=== PATIENT | female | born 2000 | race Hispanic/Latino ===

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

== ENCOUNTER 2021-11-12 18:38 | Emergency (ER) | payer SELFPAY ==
[~2021-11-12] VITALS: Ht 162.6 cm; Wt 181.4 kg
[2021-11-12] MEDS ORDERED: Morphine 4mg Syringe 4 MG/ML INJ IM STA (18:55)
[2021-11-12] MEDS ORDERED: KETOROLAC TROMETHAMINE 60 MG/2 ML VIAL IM ONE (19:00)
[2021-11-12 19:38] LABS: AMPHETAMINES SCREEN,URINE NEGATIVE (NEGATIVE); BENZODIAZEPINES SCREEN,URINE NEGATIVE (NEGATIVE); PHENCYCLIDINE SCREEN,URINE NEGATIVE (NEGATIVE)
[2021-11-12] MEDS ORDERED: KETOROLAC TROME10 MG PO (21:53)
== END 2021-11-12 21:54 | disposition home or self-care (01) ==
LOC: ER 18:48
DX: M50.10 Cervical disc disorder with radiculopathy, unspecified cervical region (principal); M54.50 Low back pain, unspecified; W10.8XXD Fall (on) (from) other stairs and steps, subsequent encounter
CPT/HCPCS: 72125; 72128; 72131; 80307; 81025; 99283; J1885

== ENCOUNTER 2021-11-26 14:51 | Emergency (ER) | payer SELFPAY ==
[~2021-11-26] VITALS: Ht 162.6 cm; Wt 185.1 kg
[~2021-11-26 14:51] MED LIST: KETOROLAC TROME10 MG PO
[2021-11-26] MEDS ORDERED: METHOCARBAMOL750 MG PO (15:12)
[2021-11-26] MEDS ORDERED: PREDNISONE50 MG PO (15:12)
[2021-11-26] MEDS ORDERED: KETOROLAC TROME10 MG PO (15:16)
== END 2021-11-26 17:31 | disposition home or self-care (01) ==
LOC: ER 15:11
DX: M54.89 Other dorsalgia (principal); E66.01 Morbid (severe) obesity due to excess calories; Z68.45 Body mass index [BMI] 70 or greater, adult
CPT/HCPCS: 99283

== ENCOUNTER 2022-09-10 18:33 | Emergency (ER) | payer OTHER ==
[~2022-09-10] VITALS: Ht 162.6 cm; Wt 175.5 kg
[~2022-09-10 18:33] MED LIST changes: +METHOCARBAMOL750 MG PO; +PREDNISONE50 MG PO
[2022-09-10] MEDS ORDERED: FAMOTIDINE 20 MG/2 ML VIAL IV STA (19:24)
[2022-09-10] MEDS ORDERED: ALBUTEROL/IPRATROPIUM 3 ML NEB NEB ONE (19:30)
[2022-09-10] MEDS ORDERED: SODIUM CHLORIDE 0.9% 1000ML 1,000 ML IV SCH (19:30)
[2022-09-10] MEDS ORDERED: MAGNESIUM/ALUMINUM/SIMETHICONE 30 ML UDC PO ONE (19:30)
[2022-09-10] MEDS ORDERED: ALBUTEROL/IPRATROPIUM 3 ML NEB ONE (20:11)
[2022-09-10] MEDS ORDERED: SODIUM CHLORIDE 0.9% 1000ML 1,000 ML ONE (20:11)
[2022-09-10] MEDS ORDERED: MAGNESIUM/ALUMINUM/SIMETHICONE 30 ML UDC ONE (20:11)
[2022-09-10] MEDS ORDERED: FAMOTIDINE 20 MG/2 ML VIAL IV ONE (20:12)
[2022-09-10] MEDS ORDERED: DEXAMETHASONE SOD PHOS INJ 4 MG/ML SDV IV ONE (20:15)
[2022-09-10] MEDS ORDERED: IOPAMIDOL 370 MG/ML 100 ML INFUS..BTL INJ ONE (20:59)
[2022-09-10] MEDS ORDERED: DEXAMETHASONE SOD PHOS INJ 4 MG/ML SDV ONE (21:54)
[2022-09-10] MEDS ORDERED: PANTOPRAZOLE SO40 MG PO (22:50)
[2022-09-10] MEDS ORDERED: FAMOTIDINE20 MG PO (22:51)
[2022-09-10 23:30] VITALS: BP 144/70
== END 2022-09-10 23:10 | disposition home or self-care (01) ==
LOC: FSED 18:41
DX: R06.02 Shortness of breath (principal); J45.901 Unspecified asthma with (acute) exacerbation; R07.89 Other chest pain; K21.00 Gastro-esophageal reflux disease with esophagitis, without bleeding; E66.01 Morbid (severe) obesity due to excess calories
CPT/HCPCS: 70491; 71260; 80048; 80076; 81003; 82553; 84484; 85025; 85379; 96374; 96376; 99284; J1100; J7030; Q9967

== ENCOUNTER 2024-10-13 21:01 | Emergency (ER) | payer OTHER ==
[~2024-10-13] VITALS: Ht 162.6 cm; Wt 203.2 kg
[~2024-10-13 21:01] MED LIST changes: +CEFUROXIME500 MG PO; +CETIRIZINE HCL10 MG PO; +FAMOTIDINE20 MG PO; +MAALOX MAXIMUM355 ML PO; +OMEPRAZOLE40 MG PO; +ONDANSETRON ODT4 MG PO; +PANTOPRAZOLE SO40 MG PO; +PYRIDIUM200 MG PO
[2024-10-13 21:05] VITALS: PULSE 81; RESP 18; TEMP 98.3
[2024-10-13] MEDS ORDERED: IOPAMIDOL 370 MG/ML 100 ML INFUS..BTL INJ ONE (22:02)
[2024-10-13] MEDS: KETOROLAC TROMETHAMINE 30 MG/ML VIAL IV STA (23:00)
[2024-10-14 01:07] VITALS: BP 121/65; PULSE 71; RESP 18; TEMP 98.3; O2SAT 98
== END 2024-10-13 23:29 | disposition home or self-care (01) ==
LOC: FSED 21:09
DX: R10.12 Left upper quadrant pain (principal); R11.2 Nausea with vomiting, unspecified; J45.909 Unspecified asthma, uncomplicated; K21.9 Gastro-esophageal reflux disease without esophagitis; E66.01 Morbid (severe) obesity due to excess calories; L40.9 Psoriasis, unspecified; F17.210 Nicotine dependence, cigarettes, uncomplicated
CPT/HCPCS: 81003; 81025; 99283; J1885; Q9967